=== PATIENT | male | born 1995 | race Caucasian/White ===

== ENCOUNTER 2022-03-09 21:22 | Emergency (ER) | payer OTHER ==
[~2022-03-09 21:22] MED LIST: AMOXICILLIN500 MG PO; CIPRODEX OTIC7.5 ML EARRT; FLEXERIL 10 MG10 MG PO; NORFLEX 100 MG100 MG PO; TORADOL 10 MG T10 MG PO; ZOLOFT50 MG PO
== END 2022-03-09 22:36 | disposition left against medical advice (07) ==
LOC: ER1 21:22
DX: Z53.21 Procedure and treatment not carried out due to patient leaving prior to being seen by health care provider (principal)